=== PATIENT | male | born 1985 | race Caucasian/White ===

== ENCOUNTER 2019-10-16 20:21 | Emergency (ER) | payer SELFPAY ==
--- NOTE | 2019-10-16 20:15 | DI.RAD_ITS ---
EXAM: XR SHOULDER RT COMPLETE 2+V CLINICAL HISTORY: hit right shoulder in soccer, suspect AC joint. TECHNIQUE: 2D digital imaging was performed. COMPARISON: No exams were available for comparison FINDINGS: BONES: No acute fracture is present. No bony destructive lesion is seen. JOINTS: No dislocation present. SOFT TISSUE: Normal. IMPRESSION: Unremarkable radiographs of the right shoulder. DATA REPOSITORY: RADIATION DOSE DELIVERED:
[2019-10-16 20:32] VITALS: BP 142/100; PULSE 92; RESP 14; TEMP 37.4; O2SAT 98
--- NOTE | 2019-10-16 20:39 | ED.GENADUL_ITS ---
Discharge Plan Disposition Patient Disposition: HOME Condition: Good Discharge Details Chief Complaint: Orthopedic Clinical Impression: Injury of right shoulder Primary Care Provider: Unknown,Unknown ED Provider: Blas Guevara Home Meds and New Rx's Prescriptions: No Action No Known Home Meds RF: 0 Discharge Instructions Instructions: Shoulder Sprain (ED) Additional Instructions: The x-ray shows no evidence of fracture. Please make sure to stretch your arm daily in all directions to prevent frozen shoulder syndrome. Only use the sling if you feel it is needed for pain control. Please take 1000 mg of Tylenol and 600 mg of ibuprofen every 6 hours to help with the pain. Ice your shoulder often. Avoid any activities that would cause significant strain on your shoulder for the next 2 weeks. If you do not have any improvement of your symptoms over 6 to 8 weeks, which is the time he would take for your bursal irritation to settle down, you may need to follow-up with an field artillery operations specialist. If you notice any worsening of your symptoms, or any new symptoms such as vomiting, diarrhea, fever, chills, shortness of breath, chest pain, numbness, weakness, or fainting , please return immediately to the emergency department for reevaluation. Please follow up with your primary care provider as soon as possible for reassessment and reevaluation. As always, it was a pleasure participating in your medical care today. Stand Alone Forms: Work Release Discharge Data Discharge Date/Time-TO BE ENTERED AT DEPARTURE: 10/16/19 21:11 Medical Decision Making This is a pleasant 34-year-old male with no significant past medical history who is right-hand dominant who presents today for right shoulder pain. Patient states he was playing soccer when he fell and hit his right shoulder. He had pain at that time, and is continued. Is worse with movement, improved by nothing. He denies any associated numbness tingling. He denies any pain in his chest. He denies any pain in the elbow wrist hand or forearm. No other complaints at this time. Physical exam demonstrates notable pain with abduction, as well as the empty can test. No significant pain or weakness with a full can test. Suspect supraspinatus injury, mild rotator cuff injury, and bursal irritation. Will give ice, recommend stretching regularly, as well as regular NSAIDs. We will get a screening x-ray to rule out significant AC joint injury or fracture. 9:01 PM X-ray negative for acute fracture. Being discharged home. Recommend NSAIDs, rest, stretching and close follow-up. I have extensively reviewed the treatment plan and discharge instructions with the patient. I have addressed all patient concerns at this time. The patient was made aware of what symptoms to monitor for that would warrant a return to the emergency department. Discussed the plan with the patient, they demonstrate verbal understanding and agreement with our assessment and plan at this time. FINDINGS: There is no evidence of fracture. The joint spaces are well maintained. There is no bony destruction. The AC joint and glenohumeral joint are unremarkable. IMPRESSION: 1. No evidence of fracture. 2. No acute bony abnormality. Thank you for allowing us to participate in the care of your patient. Dictated and Authenticated by: Damien Heredia MD 10/16/2019 8:58 PM Eastern Time ([place] & [place]) HPI General Date/Time Provider Initiated Documentation: 10/16/19 20:23 . HPI Narrative: This is a pleasant 34-year-old male with no significant past medical history who is right-hand dominant who presents today for right shoulder pain. Patient states he was playing soccer when he fell and hit his right shoulder. He had pain at that time, and is continued. Is worse with movement, improved by nothing. He denies any associated numbness tingling. He denies any pain in his chest. He denies any pain in the elbow wrist hand or forearm. No other complaints at this time. Related Data Home Medications Medication Instructions Recorded Confirmed Unknown [No Known Home Meds] 10/06/16 10/16/19 Allergies Allergy/AdvReac Type Severity Reaction Status Date / Time No Known Allergies Allergy Unverified 10/16/19 20:37 General Stated Complaint: Orthopedic KAYLENE: 4 Review of Systems All systems reviewed & are unremarkable except as noted in HPI and below [facility] Social History Smoking/Tobacco Use Status: Current every day Tobacco Type: cigarettes Alcohol Intake: current Alcohol Intake frequency: holidays/special occasions only Drug use: Never Substance use type: does not use Do you feel safe at home: Yes Do you feel safe in your relationship?: Yes Exam Narrative Exam Narrative: 1.Const: Well-nourished, Well-developed, appearing stated age 2.Eyes: PERRL, no conjunctival injection, and symmetrical lids. 3.ENT: Atraumatic external nose and ears. Moist MM. Neck: Symmetric, trachea midline, No thyromegaly. 4.CVS: +S1/S2, No murmurs or gallops. Peripheral pulses 2+ and equal in all extremities. Brisk capillary refill in all extremities. 5.RESP: Unlabored respiratory effort. Clear to auscultation bilaterally. No wheezes rales or rhonchi 6.GI: Soft, Nontender/Nondistended, No hepatosplenomegaly. No guarding or rebound. 7.MSK: Normocephalic/Atraumatic, Extremities w/o deformity. No cyanosis or clubbing. Movement of the right shoulder demonstrates pain in abduction, as well as the empty can test. No significant pain or weakness in the full can test. Minimal pain with posterior movement minimal pain with anterior movement. Mild pain over AC joint. 8.Skin: Warm, Dry. No rashes or lesions. 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 Sensation grossly intact, no focal neurologic deficits. No 10.Psych: (AAO) x3. Appropriate mood and affect Course Vital Signs Vital signs: Vital Signs Temperature 37.4 C 10/16/19 20:32 Pulse 92 H 10/16/19 20:32 Respiratory Rate 14 10/16/19 20:32 Blood Pressure 142/100 H 10/16/19 20:32 Pulse Oximetry 98 10/16/19 20:32 Temperature 37.4 C 10/16/19 20:32 Temperature Source Skin 10/16/19 20:32 Pulse 92 H 10/16/19 20:32 Respiratory Rate 14 10/16/19 20:32 Respiratory Effort Non-Labored 10/16/19 20:36 Blood Pressure 142/100 H 10/16/19 20:32 Blood Pressure Position Sitting 10/16/19 20:32 Pulse Oximetry 98 10/16/19 20:32 Oxygen Delivery Method Room Air 10/16/19 20:32 Oxygen Flow Rate 0 10/16/19 20:32 Pain Level 9 10/16/19 20:36
--- NOTE | 2019-10-16 20:58 | DI.VRAD_ITS ---
PROCEDURE INFORMATION: Exam: XR Right Shoulder Exam date and time: 10/16/2019 8:42 PM Age: 34 years old Clinical indication: Injury or trauma; Injury history: Soccor; Initial encounter; Blunt trauma (contusions or hematomas; Right; Injury details: Hit RT shoulder in soccer, suspect ac joint TECHNIQUE: Imaging protocol: XR Right shoulder. Views: 2 or more views. COMPARISON: No relevant prior studies available. FINDINGS: There is no evidence of fracture. The joint spaces are well maintained. There is no bony destruction. The AC joint and glenohumeral joint are unremarkable. IMPRESSION: 1. No evidence of fracture. 2. No acute bony abnormality. Dictated and Authenticated by: Damien Heredia MD. Ordering:LIU Odonnell MD
== END 2019-10-16 21:11 | disposition home or self-care (01) ==
LOC: ER 21:17
PROVIDERS: Emergency Provider Student in an Organized Health Care Education/Training Program
DX: S49.91XA Unspecified injury of right shoulder and upper arm, initial encounter (principal); W19.XXXA Unspecified fall, initial encounter; Y93.66 Activity, soccer
CPT/HCPCS: 99283; 73030; L3650

== ENCOUNTER 2020-03-05 17:02 | Outpatient (REF) | payer MEDICAID, SELFPAY ==
[2020-03-09 22:52] LABS: Patient Race White; SARS-CoV-2 RNA Undetected (Undetected); SARS-CoV-2 Specimen Source Nasal
== END 2020-03-05 17:22 ==
LOC: NCHCN 17:02
PROVIDERS: PCP Physician Assistant; Visit Provider Physician Assistant
DX: J02.9 Acute pharyngitis, unspecified (principal)
CPT/HCPCS: U0003

== ENCOUNTER 2020-03-14 08:02 | Outpatient (REF) | payer MEDICAID, SELFPAY ==
[2020-03-14 19:51] LABS: Anion Gap 12.1 mmol/L (3-11); BUN 16 mg/dL (7-18); CO2 27.9 mmol/L (21.0-32.0); Calculated LDL 107 mg/dL (<100); Chloride 103 mmol/L (98-107); Cholesterol 169 mg/dL (<200); Glucose 135 mg/dL (74-106); HDL Cholesterol 47 mg/dL (40-60); Potassium 4.7 mmol/L (3.5-5.1); Sodium 143 mmol/L (136-145); Triglyceride 79 mg/dL (<150)
== END 2020-03-14 08:22 ==
LOC: NCHCN 08:02
PROVIDERS: PCP Physician Assistant; Visit Provider Physician Assistant
DX: Z13.220 Encounter for screening for lipoid disorders (principal); Z13.228 Encounter for screening for other metabolic disorders; Z00.00 Encounter for general adult medical examination without abnormal findings
CPT/HCPCS: 80048; 80061

== ENCOUNTER 2020-04-07 16:51 | Emergency (ER) | payer MEDICAID, SELFPAY ==
[2020-04-07 17:06] VITALS: BP 132/78; PULSE 69; RESP 14; TEMP 36.8; O2SAT 95
--- NOTE | 2020-04-07 17:47 | ED.GENADUL_ITS ---
Discharge Plan Disposition Patient Disposition: HOME Condition: Stable Discharge Details Clinical Impression: Dental infection Primary Care Provider: Jonas Pisano ED Provider: Timmy Silva Home Meds and New Rx's Prescriptions: New amoxicillin 875 mg tablet 875 mg PO BID Qty: 20 RF: 0 Discharge Instructions Instructions: Toothache (ED) Additional Instructions: Amoxicillin as directed. Gnva-[id number] Tylenol and/or Motrin as directed for discomfort. Cool and/or warm compresses every 2 hours for 20 minutes. Please watch for new or worsening symptoms and return to the ER for any concerns. I would like you to contact a dentist on Thursday using the dental list provided for prompt outpatient dental evaluation. Medical Decision Making 35-year-old gentleman reports chronic dental pain, worse over the past 3 weeks. Denies any significant pain now. No swelling. Denies fever. He is in the process of getting a dentist, but would like antibiotics before he sees the dentist so that they can perform a procedure if indicated. Clinically he appears well, nontoxic. He is afebrile, airway is patent. No evidence of trismus. Given his increased discomfort for the past couple of weeks I do believe initiating antibiotic therapy is reasonable. No obvious abscess that requires I&D. Will initiate amoxicillin therapy and give dental list. Recommend llsf-kzd-[id number] medication for symptomatic control. Encouraged to return to the ER for new or worsening symptoms. Medical Records Medical records reviewed: Yes I reviewed the patient's medical records. HPI General Mode of arrival: ambulatory . Date/Time Provider Initiated Documentation: 04/07/20 17:05 . Limitations to Documentation: no limitations . Information obtained by: patient . HPI Narrative: This is a 35-year-old male, denies significant past medical history, former smoker, presenting for lower bilateral tooth pain that he describes as chronic in nature for several months but recently over the past few weeks has had increased pain in his right posterior tooth. He is trying to be seen by dentist but knows that a dentist will not perform a procedure if he has an infection, is requesting antibiotics. He denies any fever, ear pain, facial swelling, difficulty speaking, breathing, swallowing. He took ofeu-pbd-[id number] Aleve today and reports that that has taken away the majority of his discomfort. He does not currently have a dentist but is in the process of getting one. Related Data Home Medications Medication Instructions Recorded Confirmed amoxicillin 875 mg PO BID #20 tab 04/07/20 Previous Rx's Medication Instructions Recorded amoxicillin 875 mg PO BID #20 tab 04/07/20 Allergies Allergy/AdvReac Type Severity Reaction Status Date / Time No Known Allergies Allergy Unverified 04/07/20 17:09 General Stated Complaint: DentalOral KAYLENE: 5 Review of Systems Constitutional Constitutional: Denies fever(s) ENT Ears, Nose, Mouth, and Throat: Denies otalgia, Denies facial pain, Reports mouth pain and Denies sore throat Cardiovascular Cardiovascular: Denies dyspnea Respiratory Respiratory: Denies cough and Denies dyspnea Integumentary/Breasts Skin/Breast: Denies erythema PFSH Social History Smoking/Tobacco Use Status: Former Tobacco Use Quit Date: 04/06/20 Smoking risk assessment performed?: Yes Alcohol Intake: current Alcohol Intake frequency: holidays/special occasions only Drug use: Never Substance use type: does not use Do you feel safe at home: Yes Do you feel safe in your relationship?: Yes Exam Const General: cooperative, healthy appearing, comfortable and no acute distress Orientation: alert and awake HENMT Head: normal to inspection, normocephalic and atraumatic Ears: external ears normal, TM's normal bilaterally and EAC's normal General nose exam: external nose normal Face and sinus: normal facial exam Mouth: moist mucous membranes Teeth and gingiva: gingiva normal Teeth image: 1. Dental discomfort to palpation, appears to be a fractured tooth. No swelling, erythema, discharge, obvious abscess. Throat: posterior oropharynx normal Eyes General: appearance normal, both eyes and all related structures Conjunctivae: conjunctivae normal Sclera: sclerae normal Neck Neck: normal visual inspection, full ROM, no lymphadenopathy, no meningeal signs, trachea midline, supple and nontender Resp Effort & Inspection: normal respiratory effort and able to speak in complete sentences Cardio Rate: regular rate Rhythm: regular rhythm Skin General skin exam: no rashes or lesions noted Neuro General: patient alert, patient awake, moves all extremities and no focal motor deficits Speech: speech normal Sensory Exam: no sensory deficits noted Psych Appearance: grossly normal Mental Status: mental status grossly normal Course Vital Signs Vital signs: Vital Signs Temperature 36.8 C 04/07/20 17:06 Pulse 69 12/12/20 17:06 Respiratory Rate 14 04/07/20 17:06 Blood Pressure 132/78 04/07/20 17:06 Pulse Oximetry 95 04/07/20 17:06 Temperature 36.8 C 04/07/20 17:06 Temperature Source Skin 04/07/20 17:06 Pulse 69 04/07/20 17:06 Respiratory Rate 14 04/07/20 17:06 Respiratory Effort 04/07/20 17:08 Blood Pressure 132/78 04/07/20 17:06 Blood Pressure Position Sitting 04/07/20 17:06 Pulse Oximetry 95 04/07/20 17:06 Oxygen Delivery Method Room Air 04/07/20 17:06 Oxygen Flow Rate 0 04/07/20 17:06 Pain Level 9 04/07/20 17:06
== END 2020-04-07 18:00 | disposition home or self-care (01) ==
PROVIDERS: Emergency Provider Physician Assistant; PCP Physician Assistant
DX: R68.84 Jaw pain (principal); K04.7 Periapical abscess without sinus
CPT/HCPCS: 99283

== ENCOUNTER 2020-07-16 13:55 | Outpatient (REF) | payer MEDICAID, SELFPAY ==
[2020-07-16 18:44] LABS: Hemoglobin A1C 5.3 % (<5.7)
== END 2020-07-16 13:56 | disposition home or self-care (01) ==
LOC: NCHCN 13:55
PROVIDERS: PCP Physician Assistant; Visit Provider Physician Assistant
DX: R73.9 Hyperglycemia, unspecified (principal)
CPT/HCPCS: 83036

== ENCOUNTER 2021-04-08 16:39 | Emergency (ER) | payer MEDICAID, SELFPAY ==
[2021-04-08 16:43] VITALS: BP 133/81; PULSE 92; RESP 14; TEMP 37.2; O2SAT 98
--- NOTE | 2021-04-08 17:15 | DI.RAD_ITS ---
Exam(s) XR ELBOW RT COMPLETE EXAM: XR ELBOW RT COMPLETE CLINICAL HISTORY: fell, struck elbow. TECHNIQUE: 2D digital imaging was performed of the left elbow. Three images were obtained. AP, lat eral and oblique views were obtained. COMPARISON: No exams were available for comparison FINDINGS: BONES: No acute fracture is present. No bony destructive lesion is seen. There is a bone island in th e olecranon. JOINTS: The elbow is normally aligned. No joint effusion is seen. SOFT TISSUE: Normal. IMPRESSION: Unremarkable radiographs of the right elbow. DATA REPOSITORY: RADIATION DOSE DELIVERED:
--- NOTE | 2021-04-08 17:42 | ED.GENADUL_ITS ---
Discharge Plan Disposition Patient Disposition: HOME Condition: Stable Discharge Details Clinical Impression: Contusion of elbow, Abrasion of anterior lower leg Primary Care Provider: Jonas Pisano ED Provider: Timmy Silva Home Meds and New Rx's Prescriptions: Continued ibuprofen 200 mg tablet 400 mg PO ONCE PRNRF: 0 Discharge Instructions Instructions: Contusion in Adults (ED), Abrasion (ED) Additional Instructions: X-ray of the elbow is unremarkable. Cool compresses as tolerated. Hwef-lnq-[id number] Tylenol and/or Motrin as directed for discomfort. Please watch for new or worse symptoms and return to the ER for any concerns Discharge Data Discharge Date/Time-TO BE ENTERED AT DEPARTURE: 04/08/21 17:54 Medical Decision Making 36-year-old male presents status post fall this morning complaining of right hearn pain and primarily right elbow pain. He is right-hand dominant. Clini thelma he appears well, nontoxic, deformity. Has not taken any medication for his discomfort. The right lower extremity appears to be a mild contusion- abrasion, no imaging required. Will obtain x-ray of the right elbow. X-ray of right elbow unremarkable. Discussed findings with patient. Patient declined sling. Relieved x-ray is unremarkable, is comfortable discharge at this time. Standard discharge and return precautions provided This documentation was generated using [employer] system, please disregard any oddities of phrase or misspellings. Medical Records Medical records reviewed: Yes I reviewed the patient's medical records. Imaging Data Radiologic Study: Attestation: I personally reviewed and interpreted this imaging study as follows: Imaging: X-Ray Radiologist's impression: Exam(s) XR ELBOW RT COMPLETE EXAM: XR ELBOW RT COMPLETE CLINICAL HISTORY: fell, struck elbow. TECHNIQUE: 2D digital imaging was performed of the left elbow. Three images were obtained. AP, lateral and oblique views were obtained. COMPARISON: No exams were available for comparison FINDINGS: BONES: No acute fracture is present. No bony destructive lesion is seen. There is a bone island in the olecranon. JOINTS: The elbow is normally aligned. No joint effusion is seen. SOFT TISSUE: Normal. IMPRESSION: Unremarkable radiographs of the right elbow. HPI General Mode of arrival: ambulatory . Date/Time Provider Initiated Documentation: 04/08/21 17:00 . Limitations to Documentation: no limitations . Information obtained by: patient . HPI Narrative: This is a 36-year-old gentleman, [id number], denies any significant past medical history, presenting for evaluation of a right elbow injury and right lower extremity injury that he sustained this morning at work. He states it was dark, and in order to turn the light on he needed to enter the room, there was a esteban in his way and he tripped over it. He states that he has a contusion to his right lower extremity which is only minimally uncomfortable and landed on his right elbow, elbow only hurts to touch otherwise his elbow does not hurt, has full range of motion. He denies striking his head or any other injury. Denies numbness, tingling, weakness. Has not taken any medications for his symptoms. Related Data Home Medications Medication Instructions Recorded Confirmed ibuprofen 200 mg tablet 400 mg PO ONCE PRN tab 09/11/20 04/08/21 Allergies Allergy/AdvReac Type Severity Reaction Status Date / Time No Known Allergies Allergy Unverified 04/08/21 16:46 General Stated Complaint: Orthopedic KAYLENE: 4 Review of Systems Constitutional Constitutional: Denies headache(s) ENT Ears, Nose, Mouth, and Throat: Denies headache(s) Musculoskeletal Musculoskeletal: Denies deformity, Reports arthralgias, Denies numbness, Reports stiffness and Denies tingling Integumentary/Breasts Skin/Breast: Denies rash Neurologic Neurologic: Denies headache(s), Denies numbness and Denies tingling PFSH All Active Problems (Updated 04/08/21 @ 17:43 by BEATRIZ Lai) Contusion of elbow (Acute) Abrasion of anterior lower leg (Acute) Bilateral carpal tunnel syndrome (Acute) Medical History Bilateral carpal tunnel syndrome Cerumen impaction Elevated blood sugar Nicotine dependence Peripheral neuropathy Sore throat Social History Smoking/Tobacco Use Status: Current every day Tobacco Type: cigarettes Smoking risk assessment performed?: Yes Alcohol Intake: never Drug use: Never Substance use type: does not use Household members: spouse and children Housing: house Number of Children: 2 Pets and animals: Yes Pets and animals: cat(s) and dog(s) What is your relationship status?: Panel score (0-1 are the most socially isolated patients): 1 What type of physical activity do you participate in: walking and other Details: softball Seatbelt use: always Do you feel safe at home: Yes Do you feel safe in your relationship?: Yes Exam Const General: cooperative, healthy appearing, comfortable and no acute distress Orientation: alert and awake [facility] Head: normal to inspection, normocephalic and atraumatic Eyes General: appearance normal, both eyes and all related structures Conjunctivae: conjunctivae normal Neck Neck: normal visual inspection, trachea midline and supple Resp Effort & Inspection: normal respiratory effort and able to speak in complete sentences Cardio Rate: regular rate Rhythm: regular rhythm Skin General skin exam: no rashes or lesions noted Neuro General: patient alert, patient awake, moves all extremities and no focal motor deficits Cognition: normal cognition Speech: speech normal Gait: normal gait Sensory Exam: no sensory deficits noted Extrem General: full ROM and capillary refill normal Elbow/forearm/wrist images: 1. Contusion, tenderness. Skin intact. Full range of motion. Neuro, vascular, tendon intact. Normal capillary refill and radial pulse. No def ormity Upper/lower leg/hip images: 1. Mild abrasion-contusion Psych Appearance: grossly normal Mental Status: mental status grossly normal Course Vital Signs Vital signs: Vital Signs Temperature 37.2 C 04/08/21 16:43 Pulse 92 H 04/08/21 16:43 Respiratory Rate 14 04/08/21 16:43 Blood Pressure 133/81 04/08/21 16:43 Pulse Oximetry 98 04/08/21 16:43 Temperature 37.2 C 04/08/21 16:43 Temperature Source Temporal Artery Scan 04/08/21 16:43 Pulse 92 H 04/08/21 16:43 Respiratory Rate 14 04/08/21 16:43 Respiratory Effort Non-Labored 04/08/21 16:44 Blood Pressure 133/81 04/08/21 16:43 Blood Pressure Position Sitting 04/08/21 16:43 Pulse Oximetry 98 04/08/21 16:43 Pain Level 5 04/08/21 16:43
--- NOTE | 2021-04-08 18:18 | DI.VRAD_ITS ---
PROCEDURE INFORMATION: Exam: XR Right Elbow Exam date and time: 04/08/2021 5:21 PM Age: 36 years old Clinical indication: Injury or trauma; Fall; Blunt trauma (contusions or hematomas); Right; Patient HX: Fell, struck elbow TECHNIQUE: Imaging protocol: XR Right elbow. Views: 3 or more views. Total images: 3 COMPARISON: CR XR SHOULDER RT COMPLETE 2+V 10/16/2019 8:42 PM FINDINGS: Bones/joints: No fractures. Incidental 4 mm bone island in the olecranon process. Radiocapitellar alignment and ulnotrochlear alignment are normal. No gross joint effusion. Soft tissues: No periostitis or osteolysis. No gross soft tissue abnormalities. No radiopaque foreign bodies. Other findings: Proximal radioulnar alignment is normal. IMPRESSION: No acute findings. Dictated and Authenticated by: Zak Olsen MD. Ordering:CESARIO Warner MD
== END 2021-04-08 17:54 | disposition home or self-care (01) ==
PROVIDERS: Emergency Provider Physician Assistant; PCP Physician Assistant
DX: S80.811A Abrasion, right lower leg, initial encounter (principal); W18.09XA Striking against other object with subsequent fall, initial encounter; Y99.0 Civilian activity done for income or pay
CPT/HCPCS: 99283; 73080

== ENCOUNTER 2022-12-20 20:55 | Emergency (ER) | payer MEDICAID, SELFPAY ==
[2022-12-20 20:59] VITALS: BP 141/93; PULSE 90; RESP 15; O2SAT 100
--- NOTE | 2022-12-20 21:02 | ED.GENADUL_ITS ---
Discharge Plan Disposition Patient Disposition: Home Discharge Details Clinical Impression: Left ankle sprain, Closed fracture of left talus Primary Care Provider: Jonas Pisano ED Provider: Blas Guevara Home Meds and New Rx's Prescriptions: No Action ibuprofen 200 mg tablet 400 mg PO ONCE PRN Discharge Instructions Instructions: Ankle Sprain (ED) Additional Instructions: At this time the x-ray shows a questionable small fracture of your talus bone. I suspect you also have mild to moderate ligamentous injury. Please use the crutches and the walking boot for the next 1-2 weeks as your ankle improves. Please continue to use Tylenol and Motrin as needed for pain. Remain nonweightbearing for the next week. Gradually transition to gentle use after this. I please follow-up closely with your carpentry specialist. We have placed a referral on your behalf. Their numbers have been included below. If you notice any worsening of your symptoms, or any new symptoms such as vomiting, diarrhea, fever, chills, shortness of breath, chest pain, numbness, weakness, or fainting , please return immediately to the emergency department for reevaluation. Please follow up with your primary care provider as soon as possible for reassessment and reevaluation. As always, it was a pleasure participating in your medical care today. Referrals: Jonas Pisano [Primary Care Provider] - Geremias Garcia MD [ [facility] STAFF PHYSICIAN] - Davis Delacruz MD [ [facility] STAFF PHYSICIAN] - Medical Decision Making 37-year-old male with no significant past medical history presents today for evaluation of left ankle pain. Patient states that around 9 hours ago the patient was playing softball, was running around the bases, and twisted his left ankle while stepping on the base awkwardly. Pain was mild to moderate at onset, it was present at the medial aspect of his ankle. However throughout the day/night the pain notably worsened. He has not taken anything for the pain. Pain is made worse with movement and palpation. Improved by nothing. He denies any numbness or tingling. No other injuries. No other complaints at this time. Exam demonstrates notable tenderness over the medial malleolus and around the deltoid ligament. Slight increased laxity for the ankle especially with eversion. Concern for ligamentous injury and/or fracture. We will get x-rays, Tylenol Motrin, monitor closely and reassess. 10:10 PM X-ray shows evidence of questionable cortical step-off in the lateral aspect of the talus which may represent small fracture. With the patient's medial tenderness I certainly suspect that there is a ligamentous component of injury as well. We will give walking boot and crutches and recommend nonweightbearing for the next week with a gradual transition to weightbearing. We will place orthopedic referral for follow-up. Discussed red flags for which to return. I have extensively reviewed the treatment plan and discharge instructions with the patient. I have addressed all patient concerns at this time. The patient was made aware of what symptoms to monitor for that would warrant a return to the emergency department. Discussed the plan with the patient, they demonstrate verbal understanding and agreement with our assessment and plan at this time. The documentation in this chart was dictated using [employer] dictation software. Please excuse any dictation errors. FINDINGS: Bones/joints: No tibia or fibular fracture is identified. Series 1 demonstrates a cortical step-off in the lateral aspect of the talus for which fracture is not excluded. If there is concern for talar fracture based on symptoms, a CT scan is recommended for further evaluation. Soft tissues: Soft tissue swelling is seen. IMPRESSION: 1. Series 1 demonstrates a cortical step-off in the lateral aspect of the talus for which fracture is not excluded. If there is concern for talar fracture based on symptoms, a CT scan is recommended for further evaluation. 2. No distal tibia or fibular fracture is identified. If there is persistent concern for fracture in these bones, suggest follow-up imaging in 7 days or alternative imaging modalities. Thank you for allowing us to participate in the care of your patient. HPI General Date/Time Provider Initiated Documentation: 12/20/22 20:57 . HPI Narrative: 37-year-old male with no significant past medical history presents today for evaluation of left ankle pain. Patient states that around 9 hours ago the patient was playing softball, was running around the bases, and twisted his left ankle while stepping on the base awkwardly. Pain was mild to moderate at onset, it was present at the medial aspect of his ankle. However throughout the day/night the pain notably worsened. He has not taken anything for the pain. Pain is made worse with movement and palpation. Improved by nothing. He denies any numbness or tingling. No other injuries. No other complaints at this time. Related Data Home Medications Medication Instructions Recorded Confirmed ibuprofen 200 mg tablet 400 mg PO ONCE PRN 09/11/20 10/24/22 Allergies Allergy/AdvReac Type Severity Reaction Status Date / Time No Known Allergies Allergy Unverified 10/24/22 16:31 General Stated Complaint: Trauma KAYLENE: 3 Review of Systems All systems reviewed & are unremarkable except as noted in HPI and below PFSH All Active Problems (Updated 12/20/22 @ 21:50 by Blas Guevara DO) Left ankle sprain (Acute) Closed fracture of left talus (Acute) Contusion of elbow (Acute) Abrasion of anterior lower leg (Acute) Bilateral carpal tunnel syndrome (Acute) Medical History Cerumen impaction Elevated blood sugar Nicotine dependence Peripheral neuropathy Sore throat Social History Smoking/Tobacco Use Status: Former Tobacco Use Smoking risk assessment performed?: Yes Alcohol Intake: never Drug use: Never Substance use type: does not use Household members: spouse and children Housing: house Number of Children: 2 Pets and animals: Yes Pets and animals: cat(s) and dog(s) What is your relationship status?: Panel score (0-1 are the most socially isolated patients): 1 What type of physical activity do you participate in: walking and other Details: softball Seatbelt use: always Do you feel safe at home: Yes Do you feel safe in your relationship?: Yes Exam Narrative Exam Narrative: 1.Const: Well-nourished, Well-developed, appearing stated age 2.Eyes: PERRL, no conjunctival injection, and symmetrical lids. 3.ENT: Atraumatic external nose and ears. Moist MM. Neck: Symmetric, trachea midline, No thyromegaly. 4.CVS: +S1/S2, No murmurs or gallops. Peripheral pulses 2+ and equal in all extremities. Brisk capillary refill in all extremities. 5.RESP: Unlabored respiratory effort. Clear to auscultation bilaterally. No wheezes rales or rhonchi 6.GI: Soft, Nontender/Nondistended, No hepatosplenomegaly. No guarding or rebou nd. 7.MSK: Left ankle demonstrates small amount of swelling at the medial malleolus. Notable point tenderness. Eversion demonstrates slight laxity in the left ankle compared to the right. Stable to anterior and posterior movements. Distal capillary refill is brisk, normal peripheral pulses. 8.Skin: Warm, Dry. No rashes or lesions. 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 Sensation grossly intact, no focal neurologic deficits. 10.Psych: (AAO) x3. Appropriate mood and affect Course Vital Signs Vital signs: Vital Signs Pulse 90 12/20/22 20:59 Respiratory Rate 15 12/20/22 20:59 Blood Pressure 141/93 H 12/20/22 20:59 Pulse Oximetry 100 12/20/22 20:59 Pulse 90 12/20/22 20:59 Respiratory Rate 15 12/20/22 20:59 Blood Pressure 141/93 H 12/20/22 20:59 Blood Pressure Position Sitting 12/20/22 20:59 Pulse Oximetry 100 12/20/22 20:59 Oxygen Delivery Method Room Air 12/20/22 20:59 Oxygen Flow Rate 0 12/20/22 20:59
[2022-12-20] MEDS: Ibuprofen 800 MG TAB PO (21:05)
[2022-12-20] MEDS: Acetaminophen 500 MG TAB 1000 MG PO (21:05)
--- NOTE | 2022-12-20 21:26 | DI.RAD_ITS ---
Exam(s) XR ANKLE LT COMPLETE EXAM: XR ANKLE LT COMPLETE CLINICAL HISTORY: medial ankle pain and swelling after twist TECHNIQUE: 2D digital imaging was performed of the left ankle. Three images were obtained. AP, lat eral and oblique views were obtained. COMPARISON: No exams were available for comparison FINDINGS: BONES: No acute fracture is present. No bony destructive lesion is seen. JOINTS:The ankle mortise is normally aligned. SOFT TISSUE: Normal. IMPRESSION: No fracture or dislocation is seen. If there is continued concern a follow-up examination in 7-10 da ys may be obtained. DATA REPOSITORY: RADIATION DOSE DELIVERED:
--- NOTE | 2022-12-20 21:49 | DI.VRAD_ITS ---
PROCEDURE INFORMATION: Exam: XR Left Ankle Exam date and time: 12/20/2022 9:21 PM Age: 37 years old Clinical indication: Injury or trauma; Other: Tripped playing softball; Sprain or strain; Left; Injury date: 01/20/23; Patient HX: Medial ankle pain and swelling after twist TECHNIQUE: Imaging protocol: Radiologic exam of the left ankle. Views: 3 or more views. COMPARISON: No relevant prior studies available. FINDINGS: Bones/joints: No tibia or fibular fracture is identified. Series 1 demonstrates a cortical step-off in the lateral aspect of the talus for which fracture is not excluded. If there is concern for talar fracture based on symptoms, a CT scan is recommended for further evaluation. Soft tissues: Soft tissue swelling is seen. IMPRESSION: 1. Series 1 demonstrates a cortical step-off in the lateral aspect of the talus for which fracture is not excluded. If there is concern for talar fracture based on symptoms, a CT scan is recommended for further evaluation. 2. No distal tibia or fibular fracture is identified. If there is persistent concern for fracture in these bones, suggest follow-up imaging in 7 days or alternative imaging modalities. Dictated and Authenticated by: Chasity Cruz MD. Ordering:LIU Odonnell MD
== END 2022-12-20 22:15 | disposition home or self-care (01) ==
LOC: RED 21:08 → ER 21:08
PROVIDERS: Emergency Provider Student in an Organized Health Care Education/Training Program; PCP Physician Assistant
DX: S92.102A Unspecified fracture of left talus, initial encounter for closed fracture (principal); S93.402A Sprain of unspecified ligament of left ankle, initial encounter; Y99.8 Other external cause status; Y93.64 Activity, baseball
CPT/HCPCS: 99283; 73610